=== PATIENT | female | born 1990 | race Caucasian/White ===

== ENCOUNTER 2016-11-08 19:48 | Emergency (ER) | payer OTHER ==
[~2016-11-08] VITALS: Ht 170.2 cm; Wt 83.2 kg
[2016-11-08 19:53] VITALS: BP 148/74; TEMP 98.4
[2016-11-08] MEDS ORDERED: OCELLA 3 MG-0.01 TAB PO (19:57)
[2016-11-08 21:03] LABS: HIV 1/2 Antibodies Non-Reactive; HIV-1p24 Antigen Non-Reactive
[2016-11-08 22:29] VITALS: PULSE 76
[2016-11-09 15:45] LABS: HEPATITIS B SURFACE AB-QL Positive (())
== END 2016-11-08 22:31 | disposition home or self-care (01) ==
LOC: COL.ER 19:48
PROVIDERS: Nurse Practitioner
DX: Z20.828 Contact with and (suspected) exposure to other viral communicable diseases (principal); I10 Essential (primary) hypertension; E78.5 Hyperlipidemia, unspecified; E11.9 Type 2 diabetes mellitus without complications; F32.9 Major depressive disorder, single episode, unspecified

== ENCOUNTER 2017-12-16 13:26 | Outpatient (RCR) | payer OTHER ==
[~2017-12-16 13:26] MED LIST: OCELLA 3 MG-0.01 TAB PO
== END 2018-03-16 | disposition home or self-care (01) ==
LOC: WSOH
DX: Z77.21 Contact with and (suspected) exposure to potentially hazardous body fluids (principal); W46.0XXD Contact with hypodermic needle, subsequent encounter; W20.8XXD Other cause of strike by thrown, projected or falling object, subsequent encounter; Y93.F9 Activity, other caregiving; Y92.122 Bedroom in nursing home as the place of occurrence of the external cause; Y99.0 Civilian activity done for income or pay; Z79.899 Other long term (current) drug therapy